=== PATIENT | male | born 1990 | race American Indian/Alaskan Native ===

== ENCOUNTER 2017-06-11 02:46 | Emergency (ER) | payer SELFPAY ==
[2017-06-11 04:54] LABS: Basophils % (Auto) 0.8 % (0.0-1.8); Eosinophils % (Auto) 0.9 % (0.0-4.3); Hematocrit 43.6 % (35.5-45.6); Mean Corpuscular HGB Conc 35 % (32-34); Mean Corpuscular Hemoglobin 31 pg (28-32); Mean Corpuscular Volume 89 fl (84-94); Platelet Count 258 K/mm3 (140-440); Red Blood Count 4.93 M/mm3 (3.65-5.03); White Blood Count 8.9 K/mm3 (4.5-11.0)
[2017-06-11 05:00] LABS: Alanine Aminotransferase 12 units/L (7-56); Albumin 4.8 g/dL (3.9-5); Albumin/Globulin Ratio 1.7 %; Alkaline Phosphatase 77 units/L (35-129); Anion Gap 17 mmol/L; Blood Urea Nitrogen 11 mg/dL (9-20); Calcium 9.6 mg/dL (8.4-10.2); Carbon Dioxide 26 mmol/L (22-30); Chloride 96.8 mmol/L (98-107); Glucose 126 mg/dL (75-100); Potassium 4.1 mmol/L (3.6-5.0); Sodium 136 mmol/L (137-145); Total Protein 7.7 g/dL (6.3-8.2)
[2017-06-11 05:53] LABS: Urine Drugs of Abuse Note Disclamer
[2017-06-11 06:01] LABS: Bilirubin,Urine NEG (Negative); Blood,Urine NEG (Negative); Ketones,Urine NEG (Negative); Leukocyte Esterase,Urine NEG (Negative); Mucus,Urine FEW /HPF; Nitrite,Urine NEG (Negative); Protein,Urine <15 mg/dL mg/dL (Negative); Urobilinogen,Urine < 2.0 mg/dL (<2.0)
--- NOTE | 2017-06-11 07:26 | Emergency Department Report ---
HPI - General Chief Complaint: Altered Mental Status Time Seen by Provider: 06/11/17 07:07 - HPI HPI: Room 17 The patient is a 26-year-old male presenting with a chief complaint of paranoia. The patient presents with his girlfriend who states for the past 2 weeks patient is. Confused and disoriented. Patient has exhibited weight loss and insomnia. Patient is frequently looking out of the window. Patient acknowledges suicidal ideation recently stating he's had these thoughts within the past 2 days. Patient denies having a plan on how to kill himself. Patient does admit to auditory hallucinations. Patient states he was diagnosed with bipolar disorder in the past but has not been on any medication for approximately 1-2 years. Location: Mental state Duration: 2 weeks Quality: Paranoia, suicidal Severity: Severe Modifying factors: [see above] Context: [see above] Mode of transportation: [not driving] ED Past Medical Hx - Past Medical History Previous Medical History?: No Hx Psychiatric Treatment: Yes (bipolar disorder?) - Surgical History Past Surgical History?: No - Family History Family history: no significant - Social History Smoking Status: Current Every Day Smoker (1 pack per day) Substance Use Type: Alcohol (rarely), Marijuana ED Review of Systems ROS: Stated complaint: HEADACHE Other details as noted in HPI Comment: All other systems reviewed and negative Constitutional: denies: chills, fever Eyes: denies: eye pain, eye discharge, vision change ENT: denies: ear pain, throat pain Respiratory: denies: cough, shortness of breath, wheezing Cardiovascular: denies: chest pain, palpitations Endocrine: no symptoms reported Gastrointestinal: denies: abdominal pain, nausea, diarrhea Genitourinary: denies: urgency, dysuria Musculoskeletal: denies: back pain, joint swelling, arthralgia Skin: denies: rash, lesions Neurological: denies: headache, weakness, paresthesias Psychiatric: auditory hallucinations, suicidal thoughts Hematological/Lymphatic: denies: easy bleeding, easy bruising Physical Exam - Physical Exam Vital Signs: Vital Signs 06/11/17 06/11/17 06/11/17 03:49 06:00 06:45 Temperature 99.1 F 99.1 F Pulse Rate 81 101 H Respiratory 18 20 20 Rate Blood Pressure 152/102 Blood Pressure 149/100 [Left] O2 Sat by Pulse 98 98 97 Oximetry Physical Exam: GENERAL: The patient is well-developed well-nourished male lying on stretcher with flat affect but not appearing to be in acute distress. [] HEENT: Normocephalic. Atraumatic. Extraocular motions are intact. Patient has moist mucous membranes. NECK: Supple. No meningitic signs are noted. Trachea midline CHEST/LUNGS: Clear to auscultation. There is no respiratory distress noted. HEART/CARDIOVASCULAR: Regular. There is no tachycardia. There is no gallop rub or murmur. ABDOMEN: Abdomen is soft, nontender. Patient has normal bowel sounds. There is no abdominal distention. SKIN: There is no rash. There is no edema. There is no diaphoresis. Recently placed tattoo along left upper extremity NEURO: The patient is awake, alert, and oriented. The patient is cooperative. The patient has no focal neurologic deficits. The patient has normal speech. Cranial nerves II through XII grossly intact, no drift MUSCULOSKELETAL: There is no evidence of acute injury. ED Course Vital Signs 06/11/17 06/11/17 06/11/17 03:49 06:00 06:45 Temperature 99.1 F 99.1 F Pulse Rate 81 101 H Respiratory 18 20 20 Rate Blood Pressure 152/102 Blood Pressure 149/100 [Left] O2 Sat by Pulse 98 98 97 Oximetry ED Medical Decision Making - Lab Data Result diagrams: 06/11/17 04:11 06/11/17 04:11 Laboratory Tests 06/11/17 06/11/17 06/11/17 04:11 04:11 04:11 WBC 8.9 RBC 4.93 Hgb 15.0 Hct 43.6 MCV 89 MCH 31 MCHC 35 H RDW 13.0 L Plt Count 258 Lymph % (Auto) 21.6 [place] % (Auto) 6.3 Eos % (Auto) 0.9 Baso % (Auto) 0.8 Lymph # 1.9 [place] # 0.6 Eos # 0.1 Baso # 0.1 Seg Neutrophils % 70.4 H Seg Neutrophils # 6.3 Carbon Dioxide 26 BUN 11 Creatinine 1.0 Estimated GFR > 60 BUN/Creatinine Ratio 11.00 Glucose 126 H Lactic Acid 1.50 Calcium 9.6 Magnesium 2.00 Total Bilirubin 1.00 AST 17 ALT 12 Alkaline Phosphatase 77 Total Protein 7.7 Albumin 4.8 Albumin/Globulin Ratio 1.7 TSH Urine Color Urine Turbidity Urine pH Ur Specific [place] Urine Protein Urine Glucose (UA) Urine Ketones Urine Blood Urine Nitrite Urine Bilirubin Urine Urobilinogen Ur Leukocyte Esterase Urine WBC (Auto) Urine RBC (Auto) U Epithel Cells (Auto) Urine Mucus Salicylates Urine Opiates Screen Urine Methadone Screen Acetaminophen Ur Barbiturates Screen Ur Phencyclidine Scrn Ur Amphetamines Screen U Benzodiazepines Scrn Urine Cocaine Screen U Marijuana (THC) Screen Drugs of Abuse Note Plasma/Serum Alcohol 06/11/17 06/11/17 06/11/17 04:11 04:11 04:11 WBC RBC Hgb Hct MCV MCH MCHC RDW Plt Count Lymph % (Auto) [place] % (Auto) Eos % (Auto) Baso % (Auto) Lymph # [place] # Eos # Baso # Seg Neutrophils % Seg Neutrophils # Carbon Dioxide BUN Creatinine Estimated GFR BUN/Creatinine Ratio Glucose Lactic Acid Calcium Magnesium Total Bilirubin AST ALT Alkaline Phosphatase Total Protein Albumin Albumin/Globulin Ratio TSH 1.040 Urine Color Urine Turbidity Urine pH Ur Specific [place] Urine Protein Urine Glucose (UA) Urine Ketones Urine Blood Urine Nitrite Urine Bilirubin Urine Urobilinogen Ur Leukocyte Esterase Urine WBC (Auto) Urine RBC (Auto) U Epithel Cells (Auto) Urine Mucus Salicylates < 0.3 L Urine Opiates Screen Urine Methadone Screen Acetaminophen < 15.0 Ur Barbiturates Screen Ur Phencyclidine Scrn Ur Amphetamines Screen U Benzodiazepines Scrn Urine Cocaine Screen U Marijuana (THC) Screen Drugs of Abuse Note Plasma/Serum Alcohol 06/11/17 06/11/17 06/11/17 04:11 05:50 05:50 WBC RBC Hgb Hct MCV MCH MCHC RDW Plt Count Lymph % (Auto) [place] % (Auto) Eos % (Auto) Baso % (Auto) Lymph # [place] # Eos # Baso # Seg Neutrophils % Seg Neutrophils # Carbon Dioxide BUN Creatinine Estimated GFR BUN/Creatinine Ratio Glucose Lactic Acid Calcium Magnesium Total Bilirubin AST ALT Alkaline Phosphatase Total Protein Albumin Albumin/Globulin Ratio TSH Urine Color Yellow Urine Turbidity Clear Urine pH 6.0 Ur Specific [place] 1.014 Urine Protein <15 mg/dl Urine Glucose (UA) Neg Urine Ketones Neg Urine Blood Neg Urine Nitrite Neg Urine Bilirubin Neg Urine Urobilinogen < 2.0 Ur Leukocyte Esterase Neg Urine WBC (Auto) 1.0 Urine RBC (Auto) 3.0 U Epithel Cells (Auto) < 1.0 Urine Mucus Few Salicylates Urine Opiates Screen Presumptive negative Urine Methadone Screen Presumptive negative Acetaminophen Ur Barbiturates Screen Presumptive negative Ur Phencyclidine Scrn Presumptive negative Ur Amphetamines Screen Presumptive negative U Benzodiazepines Scrn Presumptive negative Urine Cocaine Screen Presumptive negative U Marijuana (THC) Screen Presumptive positive Drugs of Abuse Note Disclamer Plasma/Serum Alcohol < 0.01 Sodium 136, potassium 4.1, chloride 96.8 - EKG Data -: EKG Interpreted by [facility] EKG shows normal: sinus rhythm Rate: tachycardia (101 bpm) - EKG Data When compared to previous EKG there are: previous EKG unavailable Interpretation: nonspecific ST-T wave narciso (T-wave inversion in lead 3, biphasic in 2 and aVF) - Radiology Data Radiology results: report reviewed (CT head), image reviewed (CT head) CT head (read by radiologist)-cranial CT scan within normal limits. - Differential Diagnosis bipolar disorder, schizophrenia, suicidal ideation Critical care attestation.: If time is entered above; I have spent that time in minutes in the direct care of this critically ill patient, excluding procedure time. ED Disposition Clinical Impression: Suicidal ideation Disposition: DC/TX-65 PSY HOSP/PSY UNIT Is pt being admited?: No Does the pt Need Aspirin: No Condition: Serious Referrals: PRIMARY CARE, [Primary Care Provider] - 3-5 Days Time of Disposition: 07:32 (awaiting placement)
--- NOTE | 2017-06-11 08:04 | Cat Scan Report ---
CT HEAD WITHOUT CONTRAST: HISTORY: Medical psych clearance, altered mental status. Serial contiguous axial images were obtained through the cranium. Intravenous contrast material was not administered. The ventricles are normal in size and appearance. There is no mass effect or midline shift. No areas of abnormally increased or decreased attenuation are seen. No mass lesion is seen. The mastoid air cells and visualized portions of the sinuses are normal. IMPRESSION: Cranial CT scan within normal limits.
[2017-06-11] MEDS ORDERED: BENADRYL IM PRN (08:45)
[2017-06-11] MEDS ORDERED: HALDOL IM PRN (08:45)
[2017-06-11] MEDS ORDERED: ATIVAN IM PRN (08:45)
--- NOTE | 2017-06-11 14:02 | Consultation ---
History of Present Illness - Reason for Consult Consult date: 06/11/17 Reason for consult: Mental Health Evaluation Requesting physician: ZIGGY MONTES - Chief Complaint Chief complaint: "Patient refuse talk" - History of Present Psychiatric Illness The patient is a 26-year-old male presenting with a chief complaint of paranoia. Today patient is uncooperative during assessment. Prior to seeing patient, he was put in the secured room because of aggressive behavior and given prn medication. An attempt was made to talk with patient, but he refused to say anything. Will follow-up with patient in 24 hours. Medications and Allergies Allergies Allergy/AdvReac Type Severity Reaction Status Date / Time No Known Allergies Allergy Unverified 06/11/17 03:49 Active Meds: Active Medications Diphenhydramine HCl (Benadryl) 50 mg IM Q6H PRN PRN Reason: Agitation Last Admin: 06/11/17 08:58 Dose: 50 mg Haloperidol Lactate (Haldol) 10 mg IM Q8H PRN PRN Reason: Agitation Last Admin: 06/11/17 08:58 Dose: 10 mg Lorazepam (Ativan) 2 mg IM Q8H PRN PRN Reason: Agitation Last Admin: 06/11/17 08:57 Dose: 2 mg Past psychiatric history - Past Medical History Past Medical History: No medical history Past Surgical History: No surgical history - past Psychiatric treatment and history Psych: Bipolar psychiatric treatment history: Per ER note, patient has hx of Bipolar DO. Unable to attain information about fam psy hx. - Social History Social history: other (Unable to obtain) Mental Status Exam - Vital signs Last Vital Signs Temp 99.1 F 06/11/17 06:00 Pulse 101 H 06/11/17 06:00 Resp 20 06/11/17 06:45 BP 149/100 06/11/17 06:00 Pulse Ox 97 06/11/17 06:45 - Exam Narrative exam: Unable to complete MSE because of patient's condition. Results Result Diagrams: 06/11/17 04:11 06/11/17 04:11 Abnormal lab results 06/11/17 06/11/17 06/11/17 Range/Units 04:11 04:11 04:11 MCHC 35 H (32-34) % RDW 13.0 L (13.2-15.2) % Seg Neutrophils % 70.4 H (40.0-70.0) % Glucose 126 H (75-100) mg/dL Salicylates < 0.3 L (2.8-20.0) mg/dL All other labs normal. Assessment and Plan Assessment and plan: Impression: Historical Dx: Bipolar DO. Today patient is uncooperative during assessment. Recommendation/Plan: Continue 1013. Will gather collateral information and follow-up with patient in 24 hours.
--- NOTE | 2017-06-12 13:30 | Progress Note ---
Subjective - Reason for Consult Consult date: 06/12/17 Reason for consult: Psychiatry Follow-up - Chief Complaint Chief complaint: "What happened to me" The patient is a 26-year-old male presenting with a chief complaint of paranoia. Today patient is calm and cooperative during the assessment. Patient stated that he has experienced this bizarre behavior in the past in [place]. He stated that he took medication in the past. He could not name the medication other than it was a red pill for his mood. Per his fiance Angela Jackman, she stated that his behavior has been bizarre lately (paranoid, delusional, and not sleeping). She stated that he has lost weight (at least 20 lbs) because he have not been eaten like normal. She stated that he spend a "a lot of money" when he gets paid. The patient denies SI/HI's and AVH's. He did endorse sleep disturbance. Patient was observed eating his breakfast. Mental Status Exam - Vital signs Last Vital Signs Temp 98.8 F 06/12/17 12:00 Pulse 90 06/12/17 12:00 Resp 18 06/12/17 12:00 BP 133/82 06/12/17 12:00 Pulse Ox 97 06/12/17 12:00 - Exam Narrative exam: MSE: Appearance: calm, cooperative Behavior: regular eye contact Speech: regular rate and tone Mood: "tired" Affect: labile Thought Process: circumstantial Thought Content: denies SI/HI's and AVH's Motor Activity: ambulatory Cognition: A/O x3 Insight: variable Judgment: variable Assessment and Plan Impression: Historical Dx: Bipolar DO. Unspecified Mood DO. Substance Use DO ( marijuana). Today patient is calm and cooperative during the assessment. Patient denies perceptional disturbances. DDx: R/O Schizoaffective DO Recommendation/Plan: Continue 1013 with placement to inpatient psy services. Start Depakote 500 mg PO BID for mood.
--- NOTE | 2017-06-13 20:13 | Progress Note ---
Subjective - Reason for Consult Reason for consult: psych consult - Chief Complaint Chief complaint: Patient notes that he feels better today. He denies any active psychosis. He denies any SI/HI/AH/VH. He states that he is tolerating the meds and can't tell me exact reasons why he would be feeling significantly better today. Mental Status Exam - Vital signs Last Vital Signs Temp 98.4 F 06/13/17 18:34 Pulse 88 06/13/17 18:34 Resp 16 06/13/17 18:34 BP 121/83 06/13/17 18:34 Pulse Ox 98 06/13/17 18:34 - Exam Orientation: time, place, person Affect: normal Mood: appropriate Thought content: other (impoverished) Thought Process: Intact Perceptions: none Speech: normal rate and pattern Concentration: focused Motor activity: normal Level of consciousness: alert Memory: Intact Assessment and Plan Assessment and Plan Impression: Historical Dx: Bipolar DO. Unspecified Mood DO. Substance Use DO ( marijuana). Today patient is calm and cooperative during the assessment. Patient denies perceptional disturbances. DDx: R/O Schizoaffective DO Recommendation/Plan: Continue 1013 with placement to inpatient psy services. Continue meds as directed. Will gather input from girlfriend as to how his current presentation matches with his baseline.
[2017-06-14 07:57] VITALS: BP 126/81
--- NOTE | 2017-06-14 12:29 | Progress Note ---
Subjective - Reason for Consult Consult date: 06/14/17 Reason for consult: Psychiatry Follow-up - Chief Complaint Chief complaint: "When will I be leaving" The patient is a 26-year-old male presenting with a chief complaint of paranoia. Today patient is calm and cooperative during the assessment. When asked how does he feel, again he could not explain his thoughts. He would respond with, "I Just feel good." He denies SI/HI's and AVH's. He denies any side effects of his medications. Mental Status Exam - Vital signs Last Vital Signs Temp 98.4 F 06/14/17 07:56 Pulse 89 06/14/17 07:56 Resp 18 06/14/17 07:56 BP 126/81 06/14/17 07:56 Pulse Ox 98 06/14/17 07:54 - Exam Narrative exam: MSE: Appearance: calm, cooperative Behavior: regular eye contact Speech: regular rate and tone Mood: "well" Affect: labile Thought Process: circumstantial Thought Content: denies SI/HI's and AVH's Motor Activity: ambulatory Cognition: A/O x3 Insight: variable Judgment: variable Assessment and Plan Impression: Historical Dx: Bipolar DO. Unspecified Mood DO. Substance Use DO ( marijuana). Today patient is calm and cooperative during the assessment. Patient denies perceptional disturbances. Recommendation/Plan: Continue 1013 with placement to [facility] today. Continue Depakote 500 mg PO BID for mood.
== END 2017-06-14 12:57 ==
LOC: ED 02:46 → EEVIPCON 02:46 → ED 06-14 12:57
DX: R45.851 Suicidal ideations (principal); F12.10 Cannabis abuse, uncomplicated; F17.200 Nicotine dependence, unspecified, uncomplicated
CPT/HCPCS: 36415; 70450; 80053; 80307; 81001; 82140; 83735; 84443; 85025; 93005; 93010; 96372; 99285; G0480; J1200; J1630; J2060; 80320